=== PATIENT | female | born 1955 | race Caucasian/White ===

== ENCOUNTER 2018-03-12 21:40 | Emergency (ER) | payer MEDICAID ==
[2018-03-12] MEDS: ONDANSETRON 4 MG INJ IV (22:49)
[2018-03-12] MEDS: HYDROmorphONE 1 MG/ML SYG IV (22:49)
[2018-03-13] MEDS: INSULIN LISPRO 100 UNIT/ML VIAL SC (01:40)
== END 2018-03-13 01:54 | disposition home or self-care (01) ==
LOC: E/R 03-13 01:54
DX: S00.93XA Contusion of unspecified part of head, initial encounter (principal); I10 Essential (primary) hypertension; E11.9 Type 2 diabetes mellitus without complications; R51 Headache; W10.8XXA Fall (on) (from) other stairs and steps, initial encounter; Y92.9 Unspecified place or not applicable
CPT/HCPCS: 70450; 70486; 72125; 73030-RT; 73090-RT; 73562; 82962; 96372; 96374; 96375; 99285-25